=== PATIENT | male | born 1985 | race Caucasian/White ===

== ENCOUNTER 2016-11-30 11:52 | Emergency (ER) | payer OTHER ==
[~2016-11-30] VITALS: Ht 180.3 cm; Wt 82.0 kg
[~2016-11-30 11:52] MED LIST: ALEVE220 M1 PO; AMOXICILLIN875 MG OR; AMOXIL500 MG OR; BACTRIM DS1 TAB PO; BL IBUPROFEN200 MG PO; CIPRO XR500 MG PO; CIPRO500 MG OR; CLEOCIN150 MG PO; EQL IBUPROFEN200 MG PO; FLEXERIL OR; KEFLEX500 MG PO; KLONOPIN1 MG PO; MEDDOSEPAK OR; MULTI VIT PO; NAPROSYN500 MG OR; NO HOME MEDS; PERCOCET 5/321 COMBO PO; PERCOCET 5/325M1 TAB OR; PERCOCET 5/325M1 TAB PO; PROTONIX40 M2 OR; TORADOL OR; TYLENOL # 31 TA1 PO; ULTRAM50 M1 PO; ULTRAM50 MG OR; VISTARIL25 MG OR
[2016-11-30 13:14] LABS: HEMATOCRIT 46.9 % (39.0-50.0); HEMOGLOBIN 16.2 g/dl (14.0-18.0); IMMATURE GRANULOCYTES 0.8 % (0.0-1.0); MEAN CORPUSCULAR HGB 30.1 pG CALC (26.0-32.0); MEAN CORPUSCULAR HGB CONC 34.5 g/L CALC (32.0-36.0); NEUT# 11.84 thou/uL (1.82-7.42); RED BLOOD COUNT 5.39 mill/uL (4.70-6.10); RED CELL DISTRI WIDTH 12.8 % (11.5-15.5)
[2016-11-30 13:18] LABS: ALBUMIN 4.9 g/dL (3.2-5.0); ALKALINE PHOSPHATASE 103 u/l (38-126); AMYLASE 58 u/l (30-110); ANION GAP 20 (6-22 (CALC)); BILIRUBIN, TOTAL 0.8 mg/dL (0.0-1.4); BUN 12 mg/dL (9-20); BUN/CREATININE RATIO 13 (12-20 (CALC)); CALCIUM 10.1 mg/dL (8.4-10.2); CARBON DIOXIDE 25 mmol/l (22-30); CHLORIDE 103 mmol/l (95-108); CREATININE 0.9 mg/dL (0.7-1.3); GFR > 60 ML/MIN (>=60 (CALC)); GFR FOR AFR.AMER. > 60 ML/MIN (>=60 (CALC)); GLUCOSE 93 mg/dL (75-110); LIPASE 35 u/l (23-300); POTASSIUM 4.2 mmol/l (3.5-5.1); SGOT/AST 34 u/l (17-59); SGPT/ALT 38 u/l (21-72); SODIUM 143 mmol/l (137-146); TOTAL PROTEIN 8.5 g/dL (6.3-8.2)
[2016-11-30] MEDS ORDERED: IMODIUM2 MG PO (14:12)
[2016-11-30] MEDS ORDERED: ZOFRAN ODT4 MG PO (14:12)
[2016-11-30 14:27] VITALS: BP 131/87
== END 2016-11-30 14:29 | disposition home or self-care (01) | DRG 866 ==
LOC: ED 11:52
PROVIDERS: Emergency Medicine
DX: B34.9 Viral infection, unspecified (principal); R11.2 Nausea with vomiting, unspecified; R19.7 Diarrhea, unspecified; R10.11 Right upper quadrant pain
CPT/HCPCS: S0164

== ENCOUNTER 2017-02-19 09:57 | Emergency (ER) | payer SELFPAY ==
[~2017-02-19] VITALS: Ht 180.3 cm; Wt 84.0 kg
[~2017-02-19 09:57] MED LIST changes: +IMODIUM2 MG PO; +ZOFRAN ODT4 MG PO
[2017-02-19] MEDS ORDERED: LORTAB 1010 MG PO (10:12)
[2017-02-19] MEDS ORDERED: NAPROXEN250 MG PO (10:13)
[2017-02-19 11:02] LABS: HEMATOCRIT 45.9 % (39.0-50.0); HEMOGLOBIN 15.7 g/dl (14.0-18.0); IMMATURE GRANULOCYTES 0.4 % (0.0-1.0); MEAN CELL VOLUME 87.9 fL CALC (80.0-100.0); MEAN CORPUSCULAR HGB 30.1 pG CALC (26.0-32.0); MEAN CORPUSCULAR HGB CONC 34.2 g/L CALC (32.0-36.0); NEUT# 9.7 thou/uL (1.82-7.42); RED BLOOD COUNT 5.22 mill/uL (4.70-6.10); RED CELL DISTRI WIDTH 12.6 % (11.5-15.5)
[2017-02-19 11:17] LABS: PROTHROMBIN TIME 11.1 SECONDS (9.0-12.5)
[2017-02-19 11:18] LABS: ALBUMIN 4.7 g/dL (3.2-5.0); ALKALINE PHOSPHATASE 90 u/l (38-126); ANION GAP 18 (6-22 (CALC)); BILIRUBIN, TOTAL 0.4 mg/dL (0.0-1.4); BUN 12 mg/dL (9-20); BUN/CREATININE RATIO 14 (12-20 (CALC)); CALCIUM 9.9 mg/dL (8.4-10.2); CARBON DIOXIDE 22 mmol/l (22-30); CHLORIDE 108 mmol/l (95-108); CREATININE 0.8 mg/dL (0.7-1.3); GFR > 60 ML/MIN (>=60 (CALC)); GFR FOR AFR.AMER. > 60 ML/MIN (>=60 (CALC)); GLUCOSE 94 mg/dL (75-110); POTASSIUM 4.5 mmol/l (3.5-5.1); SGOT/AST 31 u/l (17-59); SGPT/ALT 32 u/l (21-72); SODIUM 143 mmol/l (137-146); TOTAL PROTEIN 7.4 g/dL (6.3-8.2)
[2017-02-19] MEDS ORDERED: ZPAK PO (12:51)
[2017-02-19 13:08] VITALS: BP 137/89
== END 2017-02-19 13:17 | disposition home or self-care (01) | DRG 204 ==
LOC: ED 09:57
PROVIDERS: Emergency Medicine
DX: R04.2 Hemoptysis (principal); F17.210 Nicotine dependence, cigarettes, uncomplicated
CPT/HCPCS: Q9967

== ENCOUNTER 2017-03-04 20:27 | Emergency (ER) | payer OTHER ==
[~2017-03-04] VITALS: Ht 180.3 cm; Wt 84.4 kg
[~2017-03-04 20:27] MED LIST changes: +LORTAB 1010 MG PO; +NAPROXEN250 MG PO; +ZPAK PO
[2017-03-04] MEDS ORDERED: AMOXICILLIN500 MG PO (21:26)
[2017-03-04 21:40] VITALS: BP 134/77
== END 2017-03-04 21:42 | disposition home or self-care (01) | DRG 153 ==
LOC: ED 20:27
DX: J04.0 Acute laryngitis (principal); F17.210 Nicotine dependence, cigarettes, uncomplicated; H66.92 Otitis media, unspecified, left ear; J02.9 Acute pharyngitis, unspecified; H92.02 Otalgia, left ear; R50.9 Fever, unspecified; R09.89 Other specified symptoms and signs involving the circulatory and respiratory systems

== ENCOUNTER 2018-04-03 20:26 | Emergency (ER) | payer OTHER ==
[~2018-04-03] VITALS: Ht 180.3 cm; Wt 91.4 kg
[~2018-04-03 20:26] MED LIST changes: +AMOXICILLIN500 MG PO
[2018-04-03] MEDS ORDERED: XANAX1 MG PO (20:38)
[2018-04-03 20:57] VITALS: BP 144/85
== END 2018-04-03 20:57 | disposition home or self-care (01) ==
LOC: ED 20:26
DX: S61.211A Laceration without foreign body of left index finger without damage to nail, initial encounter (principal); W26.0XXA Contact with knife, initial encounter; Y93.89 Activity, other specified; Y92.009 Unspecified place in unspecified non-institutional (private) residence as the place of occurrence of the external cause

== ENCOUNTER 2018-06-06 20:04 | Emergency (ER) | payer OTHER ==
[~2018-06-06] VITALS: Ht 180.3 cm; Wt 87.0 kg
[~2018-06-06 20:04] MED LIST changes: +XANAX1 MG PO
[2018-06-06] MEDS ORDERED: IBUPROFEN600 MG PO (22:00)
[2018-06-06] MEDS ORDERED: ORPHENADRINE100 MG PO (22:00)
[2018-06-06 22:18] VITALS: BP 132/76
== END 2018-06-06 22:18 | disposition home or self-care (01) ==
LOC: ED 20:04
DX: S39.012A Strain of muscle, fascia and tendon of lower back, initial encounter (principal); F17.200 Nicotine dependence, unspecified, uncomplicated; V59.40XA Driver of pick-up truck or van injured in collision with unspecified motor vehicles in traffic accident, initial encounter; S06.9X1A Unspecified intracranial injury with loss of consciousness of 30 minutes or less, initial encounter

== ENCOUNTER 2018-11-15 17:26 | Observation (INO) | payer OTHER ==
[~2018-11-15] VITALS: Ht 180.3 cm; Wt 83.9 kg
[~2018-11-15 17:26] MED LIST changes: +IBUPROFEN600 MG PO; +ORPHENADRINE100 MG PO
[2018-11-15 17:57] LABS: HEMATOCRIT 46.4 % (39.0-50.0); HEMOGLOBIN 16.1 g/dl (14.0-18.0); IMMATURE GRANULOCYTES 0.5 % (0.0-5.0); MEAN CELL VOLUME 85.6 fL CALC (80.0-100.0); MEAN CORPUSCULAR HGB 29.7 pG CALC (26.0-32.0); MEAN CORPUSCULAR HGB CONC 34.7 g/L CALC (32.0-36.0); NEUT# 8.4 thou/uL (1.82-7.42); RED BLOOD COUNT 5.42 mill/uL (4.70-6.10); RED CELL DISTRI WIDTH 13.2 % (11.5-15.5)
[2018-11-15] MEDS ORDERED: XANAX1 MG PO (18:11)
[2018-11-15 18:12] LABS: ALBUMIN 4.9 g/dL (3.2-5.0); ALKALINE PHOSPHATASE 104 u/l (38-126); AMYLASE 51 u/l (30-110); ANION GAP 16 (6-22 (CALC)); BUN 19 mg/dL (9-20); BUN/CREATININE RATIO 20 (12-20 (CALC)); CARBON DIOXIDE 25 mmol/l (22-30); CHLORIDE 104 mmol/l (95-108); CREATININE 0.9 mg/dL (0.7-1.3); ETHYL ALCOHOL 0 mg/dl (0-30); GFR > 60 ML/MIN (>=60 (CALC)); GFR FOR AFR.AMER. > 60 ML/MIN (>=60 (CALC)); LIPASE 74 u/l (23-300); POTASSIUM 4.6 mmol/l (3.5-5.1); SGOT/AST 38 u/l (17-59); SODIUM 140 mmol/l (137-146); TOTAL PROTEIN 8.2 g/dL (6.3-8.2)
[2018-11-15 18:15] LABS: ACT PARTIAL THROMBO TIME 27.4 SECONDS (20.0-32.5); PROTHROMBIN TIME 10.6 SECONDS (9.0-12.5)
[2018-11-15 18:17] LABS: BILIRUBIN, TOTAL 0.7 mg/dL (0.0-1.4)
[2018-11-15 19:58] VITALS: BP 117/71
[2018-11-16 00:10] VITALS: BP 108/62
[2018-11-16 04:54] VITALS: BP 112/70
[2018-11-16 07:42] VITALS: BP 108/73
[2018-11-16 11:15] VITALS: BP 107/69
== END 2018-11-16 12:05 | disposition home or self-care (01) ==
LOC: ED 17:26 → ED-I 17:48 → ED 18:37 → MS2 18:38
PROVIDERS: ADMIT Internal Medicine; ATTEND Internal Medicine
DX: R07.9 Chest pain, unspecified (principal); F41.9 Anxiety disorder, unspecified; F17.200 Nicotine dependence, unspecified, uncomplicated; Z82.49 Family history of ischemic heart disease and other diseases of the circulatory system
CPT/HCPCS: G0378

== ENCOUNTER 2019-11-25 15:44 | Emergency (ER) | payer MEDICAID ==
[~2019-11-25] VITALS: Ht 180.3 cm; Wt 93.0 kg
[2019-11-25] MEDS ORDERED: BACTRIM DS1 TAB PO ×2 (17:18)
[2019-11-25 17:25] VITALS: BP 131/73
== END 2019-11-25 17:29 | disposition home or self-care (01) ==
LOC: ED 15:44
DX: L02.413 Cutaneous abscess of right upper limb (principal); F17.210 Nicotine dependence, cigarettes, uncomplicated

== ENCOUNTER 2019-12-20 16:16 | Emergency (ER) | payer OTHER ==
[~2019-12-20] VITALS: Ht 180.3 cm; Wt 95.0 kg
[2019-12-20] MEDS ORDERED: FLOXIN OTIC0.3 % AS (16:59)
[2019-12-20] MEDS ORDERED: AMOX/K CLAV875 M1 PO (16:59)
[2019-12-20] MEDS ORDERED: LORTAB 7.57.5 MG PO ×2 (17:03)
[2019-12-20 17:06] VITALS: BP 150/108
== END 2019-12-20 17:12 | disposition home or self-care (01) ==
LOC: ED 16:16
DX: S09.22XA Traumatic rupture of left ear drum, initial encounter (principal); F41.9 Anxiety disorder, unspecified; F17.210 Nicotine dependence, cigarettes, uncomplicated; Y93.19 Activity, other involving water and watercraft; Y93.15 Activity, underwater diving and snorkeling; Y92.89 Other specified places as the place of occurrence of the external cause

== ENCOUNTER 2020-02-17 14:07 | Emergency (ER) | payer SELFPAY ==
[~2020-02-17] VITALS: Ht 180.3 cm; Wt 97.0 kg
[~2020-02-17 14:07] MED LIST changes: +AMOX/K CLAV875 M1 PO; +FLOXIN OTIC0.3 % AS; +LORTAB 7.57.5 MG PO
[2020-02-17] MEDS ORDERED: TAM75CAP PO (16:31)
[2020-02-17 16:44] VITALS: BP 133/81
== END 2020-02-17 16:55 | disposition home or self-care (01) | DRG 195 ==
LOC: ED 14:07
DX: J10.1 Influenza due to other identified influenza virus with other respiratory manifestations (principal); F41.9 Anxiety disorder, unspecified; F17.200 Nicotine dependence, unspecified, uncomplicated; Z20.828 Contact with and (suspected) exposure to other viral communicable diseases

== ENCOUNTER 2020-08-14 20:11 | Emergency (ER) | payer MEDICAID ==
[~2020-08-14] VITALS: Ht 180.3 cm; Wt 90.9 kg
[~2020-08-14 20:11] MED LIST changes: +TAM75CAP PO
[2020-08-14] MEDS ORDERED: ASPIRIN81 MG PO (20:53)
[2020-08-14] MEDS ORDERED: PRILOSEC20 MG/CAP PO (20:54)
[2020-08-14 21:11] LABS: URINE BILIRUBIN - DIPSTICK NEGATIVE (NEGATIVE); URINE BLOOD DIPSTICK NEGATIVE (NEGATIVE); URINE COLOR YELLOW; URINE GLUCOSE - DIPSTICK NEGATIVE (NEGATIVE); URINE KETONE NEGATIVE (NEGATIVE); URINE LEUK ESTERASE NEGATIVE (NEGATIVE); URINE PH 7.5 (4.5-8.0); URINE PROTEIN - DIPSTICK NEGATIVE (NEG-TRACE)
[2020-08-14 21:13] LABS: URINE NITRITE - DIPSTICK NEGATIVE (Negative)
[2020-08-14 21:13] LABS: HEMATOCRIT 49.3 % (39.0-50.0); HEMOGLOBIN 16.2 g/dl (14.0-18.0); IMMATURE GRANULOCYTES 0.6 % (0.0-5.0); MEAN CELL VOLUME 88.5 fL CALC (80.0-100.0); MEAN CORPUSCULAR HGB 29.1 pG CALC (26.0-32.0); MEAN CORPUSCULAR HGB CONC 32.9 g/dL CAL (32.0-36.0); NEUT# 8.81 thou/uL (1.82-7.42); RED BLOOD COUNT 5.57 mill/uL (4.70-6.10); RED CELL DISTRI WIDTH 12.9 % (11.5-15.5)
[2020-08-14 21:22] LABS: ALBUMIN 4.4 g/dL (3.2-5.0); ALKALINE PHOSPHATASE 87 u/l (38-126); AMYLASE 55 u/l (30-110); ANION GAP 9 (6-22 (CALC)); BUN 17 mg/dL (9-20); BUN/CREATININE RATIO 14 (12-20 (CALC)); CARBON DIOXIDE 27 mmol/l (22-30); CHLORIDE 106 mmol/l (95-108); CREATININE 1.2 mg/dL (0.7-1.3); GFR > 60 ML/MIN (>=60 (CALC)); GFR FOR AFR.AMER. > 60 ML/MIN (>=60 (CALC)); LIPASE 79 u/l (23-300); POTASSIUM 4.2 mmol/l (3.5-5.1); SGOT/AST 32 u/l (17-59); SODIUM 139 mmol/l (137-146); TOTAL PROTEIN 7.4 g/dL (6.3-8.2)
[2020-08-14 21:25] LABS: BILIRUBIN, TOTAL 0.3 mg/dL (0.0-1.4)
[2020-08-14] MEDS ORDERED: PROTONIX40 MG PO (23:46)
[2020-08-14] MEDS ORDERED: ZOFRAN4 MG/TAB PO (23:46)
[2020-08-14 23:52] VITALS: BP 124/70
== END 2020-08-15 | disposition home or self-care (01) ==
LOC: ED 20:11
PROVIDERS: Emergency Medicine
DX: R10.13 Epigastric pain (principal); R11.10 Vomiting, unspecified; F41.9 Anxiety disorder, unspecified; F17.210 Nicotine dependence, cigarettes, uncomplicated
CPT/HCPCS: Q9967; S0164

== ENCOUNTER 2020-11-12 15:10 | Emergency (ER) | payer MEDICAID ==
[~2020-11-12] VITALS: Ht 180.3 cm; Wt 95.5 kg
[~2020-11-12 15:10] MED LIST changes: +ASPIRIN81 MG PO; +PRILOSEC20 MG/CAP PO; +PROTONIX40 MG PO; +ZOFRAN4 MG/TAB PO
[2020-11-12] MEDS ORDERED: AMOXICILLIN875 MG PO (15:30)
[2020-11-12 15:35] VITALS: BP 133/84
== END 2020-11-12 15:35 | disposition home or self-care (01) ==
LOC: ED 15:10
DX: S09.22XA Traumatic rupture of left ear drum, initial encounter (principal); F41.9 Anxiety disorder, unspecified; I25.2 Old myocardial infarction; F17.200 Nicotine dependence, unspecified, uncomplicated; W16.012A Fall into swimming pool striking water surface causing other injury, initial encounter

== ENCOUNTER 2021-01-20 17:24 | Emergency (ER) | payer MEDICAID ==
[~2021-01-20] VITALS: Ht 180.3 cm; Wt 90.7 kg
[~2021-01-20 17:24] MED LIST changes: +AMOXICILLIN875 MG PO
[2021-01-20 19:48] LABS: HEMATOCRIT 46.3 % (39.0-50.0); HEMOGLOBIN 15.6 g/dl (14.0-18.0); IMMATURE GRANULOCYTES 0.4 % (0.0-5.0); MEAN CELL VOLUME 88.9 fL CALC (80.0-100.0); MEAN CORPUSCULAR HGB 29.9 pG CALC (26.0-32.0); MEAN CORPUSCULAR HGB CONC 33.7 g/dL CAL (32.0-36.0); NEUT# 9.04 thou/uL (1.82-7.42); RED BLOOD COUNT 5.21 mill/uL (4.70-6.10); RED CELL DISTRI WIDTH 12.9 % (11.5-15.5)
[2021-01-20 20:02] LABS: ALBUMIN 4.6 g/dL (3.2-5.0); ALKALINE PHOSPHATASE 93 u/l (38-126); AMYLASE 58 u/l (30-110); ANION GAP 15 (6-22 (CALC)); BILIRUBIN, TOTAL 0.5 mg/dL (0.0-1.4); BUN 12 mg/dL (9-20); BUN/CREATININE RATIO 11 (12-20 (CALC)); CARBON DIOXIDE 28 mmol/l (22-30); CHLORIDE 102 mmol/l (95-108); CREATININE 1.1 mg/dL (0.7-1.3); GFR > 60 ML/MIN (>=60 (CALC)); GFR FOR AFR.AMER. > 60 ML/MIN (>=60 (CALC)); LIPASE 68 u/l (23-300); POTASSIUM 4.2 mmol/l (3.5-5.1); SGOT/AST 30 u/l (17-59); SODIUM 140 mmol/l (137-146); TOTAL PROTEIN 7.6 g/dL (6.3-8.2)
[2021-01-20 20:13] LABS: URINE BILIRUBIN - DIPSTICK NEGATIVE (NEGATIVE); URINE BLOOD DIPSTICK NEGATIVE (NEGATIVE); URINE COLOR YELLOW; URINE GLUCOSE - DIPSTICK NEGATIVE (NEGATIVE); URINE KETONE NEGATIVE (NEGATIVE); URINE LEUK ESTERASE NEGATIVE (NEGATIVE); URINE PH 8.5 (4.5-8.0); URINE PROTEIN - DIPSTICK NEGATIVE (NEG-TRACE); URINE UROBILINOGEN - DIPSTICK 0.2 E.U./dL (0.2)
[2021-01-20 20:18] LABS: URINE NITRITE - DIPSTICK NEGATIVE (Negative)
[2021-01-20] MEDS ORDERED: PHENERGAN25 MG RE (23:26)
[2021-01-20 23:50] VITALS: BP 126/82
== END 2021-01-20 23:55 | disposition home or self-care (01) ==
LOC: ED 17:24
PROVIDERS: Family Medicine
DX: R10.11 Right upper quadrant pain (principal); R11.10 Vomiting, unspecified; F41.9 Anxiety disorder, unspecified; I25.2 Old myocardial infarction; F17.210 Nicotine dependence, cigarettes, uncomplicated
CPT/HCPCS: Q9967; S0164

== ENCOUNTER 2021-05-13 22:40 | Emergency (ER) | payer MEDICAID ==
[~2021-05-13] VITALS: Ht 180.3 cm; Wt 84.0 kg
[~2021-05-13 22:40] MED LIST changes: +PHENERGAN25 MG RE
[2021-05-13] MEDS ORDERED: ULTRAM50 M1 PO (23:29)
[2021-05-13 23:35] VITALS: BP 136/85
== END 2021-05-13 23:40 | disposition home or self-care (01) ==
LOC: ED 22:40
DX: S83.91XA Sprain of unspecified site of right knee, initial encounter (principal); F17.200 Nicotine dependence, unspecified, uncomplicated; W30.89XA Contact with other specified agricultural machinery, initial encounter; Y93.89 Activity, other specified
CPT/HCPCS: L1830

== ENCOUNTER 2021-06-28 14:46 | Emergency (ER) | payer MEDICAID ==
[~2021-06-28] VITALS: Ht 180.3 cm; Wt 97.1 kg
[2021-06-28 15:25] LABS: HEMATOCRIT 47.3 % (39.0-50.0); IMMATURE GRANULOCYTES 0.6 % (0.0-5.0); MEAN CELL VOLUME 88.7 fL CALC (80.0-100.0); MEAN CORPUSCULAR HGB CONC 33.8 g/dL CAL (32.0-36.0); NEUT# 9.14 thou/uL (1.82-7.42); RED BLOOD COUNT 5.33 mill/uL (4.70-6.10)
[2021-06-28 15:55] LABS: ALBUMIN 4.6 g/dL (3.2-5.0); ALKALINE PHOSPHATASE 93 u/l (38-126); ANION GAP 18 (6-22 (CALC)); BILIRUBIN, TOTAL 0.6 mg/dL (0.0-1.4); BUN 13 mg/dL (9-20); BUN/CREATININE RATIO 10 (12-20 (CALC)); CARBON DIOXIDE 23 mmol/l (22-30); CHLORIDE 103 mmol/l (95-108); CREATININE 1.2 mg/dL (0.7-1.3); GFR > 60 ML/MIN (>=60 (CALC)); GFR FOR AFR.AMER. > 60 ML/MIN (>=60 (CALC)); LIPASE 45 u/l (23-300); POTASSIUM 4.4 mmol/l (3.5-5.1); SGOT/AST 38 u/l (17-59); SODIUM 139 mmol/l (137-146); TOTAL PROTEIN 7.6 g/dL (6.3-8.2)
[2021-06-28 17:38] VITALS: BP 109/85
== END 2021-06-28 18:20 | disposition home or self-care (01) ==
LOC: ED 14:46
PROVIDERS: Internal Medicine
DX: R07.9 Chest pain, unspecified (principal); I10 Essential (primary) hypertension; R51.9 Headache, unspecified; F41.9 Anxiety disorder, unspecified; I25.2 Old myocardial infarction; F17.210 Nicotine dependence, cigarettes, uncomplicated

== ENCOUNTER 2021-07-07 17:32 | Emergency (ER) | payer MEDICAID ==
[~2021-07-07] VITALS: Ht 180.3 cm; Wt 89.0 kg
[2021-07-07 19:20] VITALS: BP 115/78
[2021-07-07 19:30] VITALS: BP 115/80
[2021-07-07 19:45] VITALS: BP 110/81
[2021-07-07 19:48] VITALS: BP 110/81
== END 2021-07-07 19:55 | disposition home or self-care (01) ==
LOC: ED 17:32
DX: L02.414 Cutaneous abscess of left upper limb (principal); F41.9 Anxiety disorder, unspecified; I25.2 Old myocardial infarction; F17.210 Nicotine dependence, cigarettes, uncomplicated

== ENCOUNTER 2022-07-08 19:44 | Emergency (ER) | payer OTHER ==
[~2022-07-08] VITALS: Ht 180.3 cm; Wt 99.0 kg
[2022-07-08] MEDS ORDERED: BACTRIM DS1 TAB PO (20:23)
[2022-07-08 20:54] VITALS: BP 124/87
== END 2022-07-08 20:54 | disposition home or self-care (01) ==
LOC: ED 19:44
DX: L03.116 Cellulitis of left lower limb (principal); I25.2 Old myocardial infarction; F17.200 Nicotine dependence, unspecified, uncomplicated

== ENCOUNTER 2022-08-29 17:50 | Emergency (ER) | payer OTHER ==
[~2022-08-29] VITALS: Ht 180.3 cm; Wt 99.7 kg
[2022-08-29 18:18] VITALS: BP 115/85
[2022-08-29 18:30] VITALS: BP 119/88
[2022-08-29 18:57] VITALS: BP 118/88
[2022-08-29 19:00] VITALS: BP 131/79
[2022-08-29 19:04] LABS: BASO% 0.5 % (0-3); EOS% 2.6 % (0-8); HEMOGLOBIN 15.9 g/dl (14.0-18.0); IMMATURE GRANULOCYTES 0.7 % (0.0-5.0); LYMPH% 27.8 % (15-41); MEAN CELL VOLUME 86.8 fL CALC (80.0-100.0); MEAN CORPUSCULAR HGB CONC 34.6 g/dL CAL (32.0-36.0); MONO% 6.5 % (2-13); NEUT# 8.25 thou/uL (1.82-7.42); NEUT% 61.9 % (42-76); RED BLOOD COUNT 5.3 mill/uL (4.70-6.10); RED CELL DISTRI WIDTH 12.9 % (11.5-15.5)
[2022-08-29 19:14] LABS: ALBUMIN 4.7 g/dL (3.2-5.0); ALKALINE PHOSPHATASE 109 u/l (38-126); ANION GAP 14 (6-22 (CALC)); BILIRUBIN, TOTAL 0.7 mg/dL (0.2-1.3); BUN 21 mg/dL (9-20); BUN/CREATININE RATIO 16 (12-20 (CALC)); CARBON DIOXIDE 25 mmol/l (22-30); CHLORIDE 101 mmol/l (95-108); CREATININE 1.3 mg/dL (0.7-1.3); GFR FOR AFR.AMER. > 60 ML/MIN (>=60 (CALC)); GFR OTHER RACES > 60 ML/MIN (>=60 (CALC)); POTASSIUM 4.1 mmol/l (3.5-5.1); SGOT/AST 60 u/l (17-59); SODIUM 136 mmol/l (137-146); TOTAL PROTEIN 7.8 g/dL (6.3-8.2)
[2022-08-29] MEDS ORDERED: TRAMADOL HCL50 MG PO (20:20)
[2022-08-29] MEDS ORDERED: PROTONIX40 M2 PO (20:20)
[2022-08-29 20:57] VITALS: BP 119/86
== END 2022-08-29 21:06 | disposition home or self-care (01) ==
LOC: ED 17:50
PROVIDERS: Family Medicine
DX: R10.11 Right upper quadrant pain (principal); R10.13 Epigastric pain; F41.9 Anxiety disorder, unspecified; I25.2 Old myocardial infarction; F17.200 Nicotine dependence, unspecified, uncomplicated
CPT/HCPCS: S0164

== ENCOUNTER 2022-09-02 15:58 | Emergency (ER) | payer SELFPAY ==
[~2022-09-02] VITALS: Ht 180.3 cm; Wt 99.0 kg
[~2022-09-02 15:58] MED LIST changes: +PROTONIX40 M2 PO; +TRAMADOL HCL50 MG PO
[2022-09-02 16:05] VITALS: BP 136/94
[2022-09-02 16:30] VITALS: BP 132/75
[2022-09-02 16:32] LABS: BASO% 0.5 % (0-3); EOS% 2.4 % (0-8); HEMATOCRIT 44.2 % (39.0-50.0); HEMOGLOBIN 14.9 g/dl (14.0-18.0); IMMATURE GRANULOCYTES 0.4 % (0.0-5.0); LYMPH% 31.5 % (15-41); MEAN CELL VOLUME 87.4 fL CALC (80.0-100.0); MEAN CORPUSCULAR HGB 29.4 pG CALC (26.0-32.0); MEAN CORPUSCULAR HGB CONC 33.7 g/dL CAL (32.0-36.0); MONO% 6.1 % (2-13); NEUT# 5.43 thou/uL (1.82-7.42); NEUT% 59.1 % (42-76); RED BLOOD COUNT 5.06 mill/uL (4.70-6.10); RED CELL DISTRI WIDTH 12.7 % (11.5-15.5)
[2022-09-02 16:51] LABS: ALBUMIN 4.3 g/dL (3.2-5.0); ALKALINE PHOSPHATASE 98 u/l (38-126); ANION GAP 14 (6-22 (CALC)); BILIRUBIN, TOTAL 0.6 mg/dL (0.2-1.3); BUN 18 mg/dL (9-20); BUN/CREATININE RATIO 16 (12-20 (CALC)); CARBON DIOXIDE 25 mmol/l (22-30); CHLORIDE 101 mmol/l (95-108); CREATININE 1.1 mg/dL (0.7-1.3); GFR FOR AFR.AMER. > 60 ML/MIN (>=60 (CALC)); GFR OTHER RACES > 60 ML/MIN (>=60 (CALC)); SGOT/AST 63 u/l (17-59); SODIUM 136 mmol/l (137-146); TOTAL PROTEIN 7.5 g/dL (6.3-8.2)
[2022-09-02 17:00] VITALS: BP 122/78
[2022-09-02 17:30] VITALS: BP 140/94
[2022-09-02 18:44] LABS: URINE BILIRUBIN - DIPSTICK NEGATIVE (NEGATIVE); URINE BLOOD DIPSTICK NEGATIVE (NEGATIVE); URINE COLOR YELLOW; URINE GLUCOSE - DIPSTICK 100 mg/dL (NEGATIVE); URINE KETONE NEGATIVE (NEGATIVE); URINE LEUK ESTERASE NEGATIVE (NEGATIVE); URINE PROTEIN - DIPSTICK NEGATIVE (NEG-TRACE); URINE UROBILINOGEN - DIPSTICK 0.2 E.U./dL (0.2)
[2022-09-02 18:47] LABS: URINE NITRITE - DIPSTICK NEGATIVE (Negative)
[2022-09-02 18:50] VITALS: BP 140/94
== END 2022-09-02 19:00 | disposition home or self-care (01) | DRG 392 ==
LOC: ED 15:58
PROVIDERS: Family Medicine
DX: R10.9 Unspecified abdominal pain (principal); F41.9 Anxiety disorder, unspecified; I25.2 Old myocardial infarction; F17.210 Nicotine dependence, cigarettes, uncomplicated

== ENCOUNTER 2024-03-17 09:16 | Emergency (ER) | payer SELFPAY ==
[~2024-03-17] VITALS: Ht 180.3 cm; Wt 104.3 kg
[2024-03-17 10:04] VITALS: BP 131/84
[2024-03-17 10:15] VITALS: BP 121/83
[2024-03-17] MEDS ORDERED: IBUPROFEN 200 MG/TAB PO ONE (10:20)
[2024-03-17 10:45] VITALS: BP 114/78
[2024-03-17 11:00] VITALS: BP 115/80
[2024-03-17] MEDS ORDERED: PAXLOVID PO (11:13)
[2024-03-17] MEDS ORDERED: TAM75CAP PO (11:13)
[2024-03-17 11:15] VITALS: BP 124/82
[2024-03-17 11:19] VITALS: BP 124/82
== END 2024-03-17 11:28 | disposition home or self-care (01) | DRG 179 ==
LOC: ED 09:16
DX: U07.1 COVID-19 (principal); J11.1 Influenza due to unidentified influenza virus with other respiratory manifestations; F41.9 Anxiety disorder, unspecified; I25.2 Old myocardial infarction; Z72.0 Tobacco use

== ENCOUNTER 2024-03-19 05:42 | Emergency (ER) | payer SELFPAY ==
[~2024-03-19] VITALS: Ht 180.3 cm; Wt 104.0 kg
[~2024-03-19 05:42] MED LIST changes: +PAXLOVID PO
[2024-03-19] MEDS ORDERED: LIDOCAINE VISCOUS 2% 15 ML UDC PO ONE (06:10)
[2024-03-19] MEDS ORDERED: oxyCODONE 10MG/APAP 325 MG 1 COMBO TAB PO ONE (06:30)
[2024-03-19 08:48] VITALS: BP 127/91
[2024-03-19] MEDS ORDERED: CODEINE/GUAIFEN1 SOL PO (08:58)
[2024-03-19 09:00] VITALS: BP 125/89
[2024-03-19 09:05] VITALS: BP 125/89
== END 2024-03-19 09:10 | disposition home or self-care (01) | DRG 179 ==
LOC: ED 05:42
DX: U07.1 COVID-19 (principal); J11.1 Influenza due to unidentified influenza virus with other respiratory manifestations; F41.9 Anxiety disorder, unspecified; I25.2 Old myocardial infarction; F17.200 Nicotine dependence, unspecified, uncomplicated; T37.5X6A Underdosing of antiviral drugs, initial encounter; Z91.138 Patient's unintentional underdosing of medication regimen for other reason
CPT/HCPCS: J1100